=== PATIENT | female | born 1980 | race Caucasian/White ===

== ENCOUNTER 2017-04-29 16:55 | Emergency (ER) | payer MEDICAID ==
[~2017-04-29] VITALS: Ht 154.9 cm; Wt 40.9 kg
[2017-04-29 16:57] VITALS: BP 120/83; TEMP 97.2
[2017-04-29 18:30] VITALS: PULSE 96
== END 2017-04-29 18:33 | disposition home or self-care (01) ==
LOC: COL.ER 16:55
DX: R06.02 Shortness of breath (principal); F41.9 Anxiety disorder, unspecified; F17.210 Nicotine dependence, cigarettes, uncomplicated; G10 Huntington's disease; Z98.890 Other specified postprocedural states
CPT/HCPCS: J2060

== ENCOUNTER → 2018-04-04 | Outpatient (CLI) | payer MEDICARE, MEDICAID ==
[2004-07-02 10:44] VITALS: TEMP 97.6
== END ==
LOC: COL.RAD 12:13
DX: K11.21 Acute sialoadenitis (principal); R60.0 Localized edema